=== PATIENT | male | born 1955 | race Caucasian/White ===

== ENCOUNTER 2018-09-30 10:11 | Emergency (ER) | payer SELFPAY ==
--- NOTE | 2018-09-30 11:08 | EDPHY ---
General Time Seen by Provider: 09/30/18 11:05 Narrative: CLINICAL IMPRESSION: Left toes contusion, Left thumb laceration ASSESSMENT/PLAN: Patient is a 63 year old male with no significant medical history who presents for evaluation of left 4th toe pain and left thumb laceration that occurred 10 hours prior. Patient is not toxic appearing, he is in no distress. Physical examination reveals small contusion 4th toe with normal ROM and approximately 2 cm very superficial laceration radial aspect left thumb proximal phalanx. There is no evidence of deep structure involvement, neurovascular compromise, foreign body, or bony involvement. The wound was not contaminated, tetanus status was UTD. The wound was irrigated and then dressed, I did not feel benefit of closing with suture secondary to superficial nature and 10 hours since injury. His 4th toes was wilfrid taped, low suspicion for fracture and no evidence of dislocation. Wound care instructions discussed with patient and family member. He is well established with his PCP at [facility], they will call to schedule an appointment for wound check. Return precautions discussed- he will return for increased pain, signs of infection, fever, vomiting, if the wound opens or for any other concerns. Patient and family member both verbalize understanding and are in agreement with plan. DIFFERENTIAL DX: Laceration, abrasion, infection, deep structure involvement, fracture, dislocation ED COURSE: 1108: Discussed with Dr. Varma CHIEF COMPLAINT: Left 4th toe pain, left thumb laceration HPI: Patient is a 63-year-old male with no significant medical history who presents with 2 complaints. Patient complains of laceration sustained to his left thumb approximately 10 hr prior to arrival. He was working with a razor blade when he accidentally cut his left thumb. He cleaned it, he was able to get the bleeding under control however it started bleeding again this morning wanted to come in for further evaluation. Patient denies any numbness or tingling of the thumb, he denies any decreased mobility. He is right-hand dominant, he is up-to -date on his tetanus status. Patient also complains of left 4th toe pain from an injury that occurred 2 days prior. He dropped an object onto the toe and just wants to make sure that is not broken. He is able to move the toe, denies any numbness or tingling of the toe. Reports small associated bruising. PAST MEDICAL HISTORY: Denies Family History: Noncontributory Social History: Denies illicit drug use or smoking ROS: A full 10 point review of systems was negative except for those mentioned in HPI. PHYSICAL EXAM: General Appearance: Well appearing, no acute distress. HENT: Normocephalic, atraumatic. External ears normal. Nares clear. Oropharynx clear. Eyes: PERRLA, no acute vision change, nystagmus, swelling, discharge, pain or photosensitivity. Conjunctiva pink, no pallor or injection. Neck: Supple, nontender, no lymphadenopathy, no midline pain, FROM, no meningismus. Respiratory: There are no retractions, lungs are clear to auscultation. Cardiac: Regular rate and rhythm, no murmurs or gallops. Gastrointestinal: Abdomen is soft, nontender, bowel sounds normal, no masses/ hernia, no rigidity, guarding or focal peritoneal findings. Skin: Warm, dry, no rashes, no nodules on palpation. Upper Extremities: Left thumb with approximately 2 cm laceration along the radial aspect of the proximal phalanx, superficial in nature. Two point discrimination is intact distally. The interphalangeal joint was tested independently with full strength. Intact distal pulses, Full range of motion intact, no tenderness, no ecchymosis or edema Lower Extremities: Intact distal pulses, No edema, No tenderness, No cyanosis, full range of motion intact, No calf tenderness bilaterally. MEDICAL DECISION MAKING: Patient was seen independently. Secondary supervising physician at time of evaluation was Dr. Varma, he did not evaluate this patient. Diagnosis: Left toe contusion, left thumb laceration. New, requires workup Summary: See Assessment and Plan for summary of ED visit Clinical lab tests: Not applicable. Independent visualization of images, tracing, or specimens: Not applicable. Decision to obtain medical records or history from someone other than the patient: No Review / Summarize previous medical records: No Discussed patient with another provider: Yes, Dr. Varma Patient Progress: Stable, discharged. - History Smoking Status: Never smoked - Objective Vital Signs: Initial Vital Signs Temperature (C) 36.9 C 09/30/18 10:35 Heart Rate 66 09/30/18 10:35 Respiratory Rate 14 09/30/18 10:35 Blood Pressure 134/69 H 09/30/18 10:35 O2 Sat (%) 96 09/30/18 10:35 O2 Delivery Mode Room Air Allergies/Adverse Reactions: Penicillins Allergy (Verified 02/12/14 15:20) Home Medications: Medication Instructions Recorded NK [No Known Home Meds] 02/12/14 Departure - Departure Disposition: Home, Routine, Self-Care Clinical Impression: Laceration of thumb, Toe contusion Condition: Good Instructions: Laceration (ED), Contusion in Adults (ED) Additional Instructions: DISCHARGE INSTRUCTIONS FROM YOUR DOCTOR Thank you for visiting our emergency department today. Please keep in mind that discharge from the emergency department does not mean that there is nothing wrong - it simply means that we have not identified an emergency condition that requires further evaluation or treatment in the hospital. You should always plan to follow up with primary care for re-evaluation of your condition in the next 2-3 days; please follow-up with Carmen Weber in 2 days for a wound check. For pain control: You may take Tylenol, I recommend 500-1000 mg every 6-8 hours as needed. Take with food and a full glass of water. Stop taking if this is upsetting her stomach. Do not exceed 3000 mg in a 24 hr period. You may also take ibuprofen, recommend 400 mg every 6 hr. Take with food and a full glass of water. Stop taking if this upsets her stomach. Do not exceed 2400 mg in a 24 hr period. Continue using wilfrid-tape on your toe as needed for comfort. In regards to her laceration, keep this dressing on until tomorrow and then you may wash with soap and water twice daily. Continue to put a sterile dressing on until it is healed. You may also apply antibiotic ointment twice per day. Return for signs of infection including redness, drainage, if the wound continues to open or for any other concerning symptom. People present with illnesses and injuries in different ways, and it is always possible that we have missed something. You may always return for re-evaluation if symptoms worsen or if they are not improving or if you develop new/different symptoms. Again, thank you for choosing our emergency department. We hope that you feel better. Referrals: NONE *PRIMARY CARE P,. [Primary Care Provider] - 2-3 days without fail (Wound check at [facility])
[2018-09-30 12:11] VITALS: BP 98/72
== END 2018-09-30 12:09 | disposition home or self-care (01) ==
DX: S90.122A Contusion of left lesser toe(s) without damage to nail, initial encounter (principal); S61.012A Laceration without foreign body of left thumb without damage to nail, initial encounter; W26.8XXA Contact with other sharp object(s), not elsewhere classified, initial encounter; Y92.9 Unspecified place or not applicable; Y93.9 Activity, unspecified; Y99.9 Unspecified external cause status